=== PATIENT | male | born 1940 | race Hispanic/Latino ===

== ENCOUNTER 2022-10-09 18:48 | Emergency (ER) | payer OTHER, MEDICARE ==
[~2022-10-09] VITALS: Ht 177.8 cm; Wt 79.4 kg
[2022-10-09 19:08] LABS: BASOPHILS % (AUTO) 0.1 % (0.0-5.0); EOSINOPHILS % (AUTO) 0.1 % (0.0-8.0); HEMATOCRIT 33.5 % (42-54); LYMPHOCYTES % (AUTO) 18.1 % (21.0-51.0); MEAN CORPUSCULAR HEMOGLOBIN 30.2 pg (27.0-33.0); MEAN CORPUSCULAR HGB CONC 33.7 g/dL (32.0-36.0); MEAN CORPUSCULAR VOLUME 89.6 fL (79-99); MONOCYTES % (AUTO) 6.9 % (3.0-13.0); NEUTROPHILS % (AUTO) 74.4 % (40.0-77.0); PLATELET COUNT (AUTO) 205 K/uL (130-400); RED BLOOD CELL COUNT(AUTO) 3.74 MIL/uL (4.50-6.20); RED CELL DISTRIBUTION WIDTH 13.5 % (11.0-15.5); WHITE BLOOD COUNT (AUTO) 9.5 K/uL (4.8-10.8)
[2022-10-09 19:16] LABS: POTASSIUM 4.1 mmol/L (3.5-5.1)
[2022-10-09 19:20] LABS: ALBUMIN 2.4 g/dL (3.5-5.0); MAGNESIUM 1.7 mg/dL (1.80-2.40); TOTAL PROTEIN, SERUM 7.2 g/dL (6.0-8.3)
[2022-10-09 19:33] LABS: B-TYPE NATRIURETIC PEPTIDE 156 pg/mL (0-100)
[2022-10-09] MEDS ORDERED: OSEL75 PO (20:18)
[2022-10-09] MEDS ORDERED: ACET-66 PO (20:18)
[2022-10-09] MEDS ORDERED: GUAI5SYR PO (20:18)
[2022-10-09] MEDS ORDERED: 0.9% NACL 500ML IV.SOLN 500 ML IV ONE (20:30)
[2022-10-09] MEDS ORDERED: GUAIFENESIN-DM 200/20 MG 10 ML PO ONE (20:30)
[2022-10-09] MEDS ORDERED: MAGNESIUM OXIDE 400 MG TABLET PO SCH (20:30)
[2022-10-09] MEDS ORDERED: OSELTAMIVIR PHOSPHATE 75 MG CAP PO ONE (20:30)
[2022-10-09 20:50] VITALS: BP 148/72
== END 2022-10-09 21:03 | disposition home or self-care (01) ==
LOC: EDH 18:48
DX: J10.1 Influenza due to other identified influenza virus with other respiratory manifestations (principal); I10 Essential (primary) hypertension; I49.1 Atrial premature depolarization; E86.0 Dehydration; E83.42 Hypomagnesemia; Z20.822 Contact with and (suspected) exposure to COVID-19
CPT/HCPCS: 99285; 83735; 84484; 80053; 83880; 85025; 87804 ×2; 36415; 87635; 71045; 93005; C9803; J7040